=== PATIENT | female | born 1940 | race Caucasian/White ===

== ENCOUNTER → 2020-07-28 | Outpatient (CLI) | payer MEDICARE | LOC: KOH-I 11:48 | DX: M25.561 Pain in right knee (principal); G89.29 Other chronic pain; M25.572 Pain in left ankle and joints of left foot; M17.11 Unilateral primary osteoarthritis, right knee | CPT/HCPCS: 73562; 73610 ==

== ENCOUNTER → 2020-08-25 | Outpatient (CLI) | payer MEDICARE | LOC: ECHO 12:00 | DX: R60.0 Localized edema (principal); I31.3 Pericardial effusion (noninflammatory); I08.2 Rheumatic disorders of both aortic and tricuspid valves; R93.1 Abnormal findings on diagnostic imaging of heart and coronary circulation | CPT/HCPCS: ECHO; 93306 ==